=== PATIENT | female | born 1940 | race Caucasian/White ===

== ENCOUNTER 2016-09-20 08:31 | Inpatient (IN) ==
--- NOTE | 2016-09-19 21:23 | Discharge Summary ---
<Alis Buenrostro - Last Filed: 09/19/16 21:19> Date of Encounter: 09/19/16 - Discharge Diagnosis (1) Arthritis of knee, right Priority: Primary Status: Acute (2) HTN (hypertension) Priority: Secondary Status: Chronic Qualifiers: Hypertension type: essential hypertension Qualified Code(s): I10 - Essential (primary) hypertension (3) HLD (hyperlipidemia) Priority: Secondary Status: Chronic Qualifiers: Hyperlipidemia type: unspecified Qualified Code(s): E78.5 - Hyperlipidemia , unspecified (4) GERD (gastroesophageal reflux disease) Priority: Secondary Status: Chronic Qualifiers: Esophagitis presence: esophagitis presence not specified Qualified Code(s) : K21.9 - Gastro-esophageal reflux disease without esophagitis - Discharge Medications Prescriptions: Trazodone HCl 50 mg PO HS #5 tablet Home Medications: Albuterol Sulfate [Albuterol Inhaler] 2 puff IH Q4HR PRN 06/18/16 [History] Amitriptyline [Elavil] 100 mg PO HS 06/18/16 [History] Budesonide/Formoterol 160/4.5 [Symbicort 160/4.5] 2 puff IH BIDR PRN 06/18/16 [ History] Cholecalciferol (D-3) [Vitamin D] 3,000 unit PO DAILY 06/18/16 [History] Clopidogrel [Plavix] 75 mg PO DAILY 06/18/16 [History] Furosemide [Lasix] 20 mg PO DAILY 06/18/16 [History] Losartan Potassium [Cozaar] 50 mg PO DAILY 06/18/16 [History] Mirabegron [Myrbetriq] 50 mg PO DAILY 06/18/16 [History] Nitroglycerin [Nitrostat] 0.4 mg SL Q5M PRN 06/18/16 [History] Omeprazole [PriLOSEC] 40 mg PO DAILY 06/18/16 [History] Propranolol [Inderal] 20 mg PO BID 06/18/16 [History] Rosuvastatin [Crestor] 40 mg PO HS 06/18/16 [History] Aspirin Enteric Coated [Aspirin EC] 325 mg PO DAILY #21 tablet. 09/19/16 [Rx] HYDROcodone/Acet 5/325 mg [[place] 5-325 mg] 1 - 2 tab PO Q6H PRN #40 tab [Rx] Clopidogrel [Plavix] 75 mg PO DAILY 09/20/16 [History] Docusate [Colace] 100 mg PO BID PRN 09/20/16 [History] Folic Acid/Multivit-Min/Lutein [Centrum Silver Chewable Tablet] 1 each PO DAILY 09/20/16 [History] Psyllium Husk [Metamucil] 660 gm PO BID 09/20/16 [History] Trazodone HCl 50 mg PO HS #5 tablet 09/21/16 [Rx] Allergies/Adverse Reactions: Allergies Penicillins [PCN] Allergy (Verified 09/20/16 10:54) Hives alendronate sodium [From Fosamax] Adverse Reaction (Verified 09/20/16 10:54) Gastrointestinal Upset Hydromorphone [From Dilaudid] Adverse Reaction (Verified 09/20/16 10:54) Itching,nausea nitrofurantoin Adverse Reaction (Verified 09/20/16 10:54) Flushing Oxycodone [From Percocet] Adverse Reaction (Verified 09/20/16 10:54) Itching Primary care physician: Vinny Brady MD - Patient Status Disposition: Transfer Inpatient Rehab Fac Condition: Good - Discharge Instructions Follow Up With: Vinny Brady MD [Primary Care Provider] - - Hospital Course Hospital course: Ms. Mcgee is a 76 year old female - Time Spent with Patient Total time spent providing and/or coordinating discharge services: <Ronald Schmitt - Last Filed: 09/23/16 08:15> Date of Encounter: 09/23/16 Time of Encounter: 08:15 - Discharge Diagnosis (1) Arthritis of knee, right Priority: Primary Status: Acute (2) HTN (hypertension) Priority: Secondary Status: Chronic Qualifiers: Hypertension type: essential hypertension Qualified Code(s): I10 - Essential (primary) hypertension (3) HLD (hyperlipidemia) Priority: Secondary Status: Chronic Qualifiers: Hyperlipidemia type: unspecified Qualified Code(s): E78.5 - Hyperlipidemia , unspecified (4) GERD (gastroesophageal reflux disease) Priority: Secondary Status: Chronic Qualifiers: Esophagitis presence: esophagitis presence not specified Qualified Code(s) : K21.9 - Gastro-esophageal reflux disease without esophagitis (5) Acute blood loss anemia Priority: Primary Status: Acute Primary care physician: Vinny Brady MD - Patient Status Functional capacity at discharge: uses cane/walker Overall status at discharge: patient is progressing back to baseline - Hospital Course Hospital course: Ms. Mcgee is a 76 year old female The patient had an uneventful postoperative course. They received antibiotics and physical therapy and were discharged in stable condition. There will follow -up in the office in 2 weeks. Aspirin DVT prophylaxis - Time Spent with Patient Total time spent providing and/or coordinating discharge services:
[2016-09-20] MEDS ORDERED: Albuterol 2.5 MG/3 ML NEBULIZER ONE (08:51)
[2016-09-20] MEDS ORDERED: Ringers Solution, Lactated 1,000 ML IVC SCH ×2 (09:00→13:00)
[2016-09-20] MEDS ORDERED: Clindamycin 900 MG/50 ML 900 MG/50 ML IV.SOLN IVPB ONE (09:00)
[2016-09-20] MEDS ORDERED: Albuterol 2.5 MG/3 ML NEBULIZER IH ONE (09:00)
[2016-09-20] MEDS ORDERED: Lidocaine -MPF 1% 2 ML VIAL ID ONE (09:00)
[2016-09-20] MEDS ORDERED: Vancomycin 1,250 MG in D5% in Water 250 ML IVPB ONE (09:30)
--- NOTE | 2016-09-20 09:40 | Anesthesia Evaluation PreOp ---
Date of Encounter: 09/20/16 Time of Encounter: 09:38 - Past History Planned Operation: Right Total Knee Arthroplasty Cardiac History: HTN, Hyperlipidemia, Cardiac Stent (stents x 4) Pulmonary History: Former smoker (quit 30 years ago, smoked for 25 years), Asthma BUCKLE SORTER History: Denies Any Significant HX Other Medical History: GERD Anesthesia History: No Prior Anesthetic Complications, Past Anesthesia Alcohol Use: none Drug use: none Medications and Allergies Albuterol Sulfate [Albuterol Inhaler] 2 puff IH Q4HR PRN 06/18/16 [History] Amitriptyline [Elavil] 100 mg PO HS 06/18/16 [History] Budesonide/Formoterol 160/4.5 [Symbicort 160/4.5] 2 puff IH BIDR 06/18/16 [ History] Cholecalciferol (D-3) [Vitamin D] 5,000 unit PO DAILY 06/18/16 [History] Clopidogrel [Plavix] 75 mg PO DAILY 06/18/16 [History] Docusate [Colace] 100 mg PO BID #60 capsule 06/18/16 [Rx] Docusate [Colace] 100 mg PO DAILY PRN 06/18/16 [History] Furosemide [Lasix] 20 mg PO DAILY 06/18/16 [History] Losartan Potassium [Cozaar] 50 mg PO DAILY 06/18/16 [History] Mirabegron [Myrbetriq] 50 mg PO DAILY 06/18/16 [History] Nitroglycerin [Nitrostat] 0.4 mg SL Q5M PRN 06/18/16 [History] Omeprazole [PriLOSEC] 40 mg PO DAILY 06/18/16 [History] Propranolol [Inderal] 20 mg PO BID 06/18/16 [History] Rosuvastatin [Crestor] 40 mg PO HS 06/18/16 [History] Trazodone HCl 50 mg PO HS 06/18/16 [History] Ciprofloxacin [Cipro] 500 mg PO BID 7 Days 08/07/16 [Rx] Phenazopyridine HCl [Pyridium] 200 mg PO TID 2 Days 08/07/16 [Rx] Aspirin Enteric Coated [Aspirin EC] 325 mg PO DAILY #21 tablet. 09/19/16 [Rx] HYDROcodone/Acet 5/325 mg [[place] 5-325 mg] 1 - 2 tab PO Q6H PRN #40 tab [Rx] Allergies Penicillins [PCN] Allergy (Verified 06/18/16 07:41) Hives alendronate sodium [From Fosamax] Adverse Reaction (Verified 06/18/16 07:41) Gastrointestinal Upset Hydromorphone [From Dilaudid] Adverse Reaction (Verified 06/18/16 07:41) Itching,nausea nitrofurantoin Adverse Reaction (Verified 06/18/16 07:41) Flushing Oxycodone [From Percocet] Adverse Reaction (Verified 06/18/16 07:41) Itching - Meds/Allergy Pre-op Review Medications Reviewed: Yes Allergies Reviewed: Yes Beta Blockers on Current Med List: Yes If Beta Blockers taken, Date/Time (Last Dose taken): 09/20/2016 at 0645 Anesthesia Results - Labs Laboratory Tests 09/01/16 09/01/16 09/02/16 13:35 13:35 17:11 WBC 6.3 Hgb 14.3 Hct 44.4 Plt Count 269 PT 10.6 INR 1.0 APTT 29.7 Sodium 142 Potassium 3.8 BUN 14 Creatinine 1.03 - Imaging EKG: report reviewed (06/14/2016 SR, low QRS voltage in preocordial lads) Additional studies: 12/14/2012 Echo Impressions: LV * Normal left ventricular size and systolic function. * There is evidence of mild diastolic dysfunction of the left ventricle. RV * Normal right ventricular size and function. Valves * No significant valvular dysfunction. RVSP * There is no pulmonary hypertension. Anesthesia Exam O2 Sat Height 1.63 m Height 1.63 m Weight 83.007 kg Weight 83.007 kg O2 Sat by Pulse Oximetry 97 O2 Sat by Pulse Oximetry 97 Vital Signs Temp Pulse Resp BP Pulse Ox 98.0 F 70 16 149/78 97 09/20/16 09:09 09/20/16 09:09 09/20/16 09:09 09/20/16 09:09 09/20/16 09:09 Height: 5'4' Weight: 183 lbs NPO (# of Hours): 8 Pain Scale: 0 Pain Scale Used: Numeric (1 - 10) - HEENT Pupil (Motor): EOMI Mallampati: II Teeth: Edentulous Oral Opening: Greater than 3 - BUCKLE SORTER LOC: Oriented BUCKLE SORTER Motor: Normal RUE, Normal LUE, Normal RLE, Normal LLE, Normal Face BUCKLE SORTER Sensory: Normal: RUE, LUE, RLE, LLE, Face - Cardiac Rhythm: Regular Murmur: None - Pulmonary Breath Sounds: bilateral Clear Respiratory Effort: Symmetrical Anesthesia Assess/Plan ASA Score: 3 Modified Kelsey Scale for Level of Consciousness: Cooperative, oriented, and tranquil Anesthetic Plan: General, Regional Monitoring Plan: Standard Monitors Recovery Plan: PACU
--- NOTE | 2016-09-20 10:44 | History & Physical Report ---
Date of Encounter: 09/20/16 Time of Encounter: 10:44 24 Hour HP Update - Instructions Instructions: If the History and Physical is less than 30 days old and was completed prior to A.M. admission and or procedure and has NOT been updated on calendar day of procedure please complete this update prior to performing procedure. - Update Patient reports changes in Medical Condition: No Changes in examination, assessment, or condition: No Changes in Medication: No Preop tests/diagnostics Reviewed: Yes Surgery Remains Indicated: Yes Consent for Planned Operative Procedure(s) Verified: Yes - Pre-Operative Checklist Preoperative Checklist Indicated: No Prophylactic Antibiotic Ordered: Yes Is VTE Prophylaxis Indicated?: Yes
[2016-09-20] MEDS ORDERED: Ketorolac 30 MG/ML VIAL ONE (11:09)
[2016-09-20] MEDS ORDERED: Ondansetron 4 MG/2 ML VIAL ONE (11:09)
[2016-09-20] MEDS ORDERED: *HR* Propofol 200 MG/20 ML VIAL IVP ONE (11:09)
[2016-09-20] MEDS ORDERED: *HR* FentaNYL (PF) 100 MCG/2 ML VIAL ONE (11:09)
[2016-09-20] MEDS ORDERED: Lidocaine -MPF 2% 2 ML VIAL ONE (11:09)
[2016-09-20] MEDS ORDERED: *HR* Midazolam HCl 2 MG/2 ML VIAL ONE (11:09)
[2016-09-20] MEDS ORDERED: ROPIVACAINE HCL/PF 0.5% 30 ML VIAL ONE (12:07)
--- NOTE | 2016-09-20 12:38 | Anesthesia Procedures ---
Date of Encounter: 09/20/16 Time of Encounter: 12:25 Procedures: Anesthesia - Nerve Block Procedure Date: 09/20/16 Time: 12:25 Allergies/Adv Reactions: pcn. dilaudid, fosamax, macrobid, oxycodone Pre-op Diagnosis: right knee arthritis Surgical Procedure: right knee arthroplasty Checklist: Correct Patient Identifier, Correct procedure, History checked Correct side: Right Blood Thinner: No Monitor Applied: EKG, BP, Pulse Oximetry Supplemental Oxygen via Nasal Cannula (L/min): 2 Sedation: Versed (mg): 1 Sedation: Fentanyl (mcg): 50 Indication: Post Op Analgesia Pre-op Neuro Deficits: No Block Type: Femoral Catheter placed: No Sterile Technique: Yes Ultrasound used: Yes Anatomy identified: Yes Visual spread of Local: Yes Nerve Stimulator Range: >0.4 - 0.6 mA Blood on Needle Aspiration: No Smooth Injection of Local: Yes Pain with Injection of Local: No Prep: Chlorhexadine Needle: 22 x 50 mm Stimuplex Local: Ropivacaine (.5% 20ml) Vitals: vss
[2016-09-20] MEDS ORDERED: Naloxone 0.4 MG/ML INJ IVP PRN (12:47)
[2016-09-20] MEDS ORDERED: MOM Conc 10 ML UD.LIQ PO PRN (12:47)
[2016-09-20] MEDS ORDERED: Ondansetron 4 MG/2 ML VIAL IVP PRN ×2 (12:47→13:04)
[2016-09-20] MEDS ORDERED: Temazepam 15 MG CAPSULE PO PRN (12:47)
[2016-09-20] MEDS ORDERED: Sennosides 8.6 MG TABLET PO PRN (12:47)
[2016-09-20] MEDS ORDERED: *HR* Labetalol 100 MG/20 ML MDV IVP PRN (13:04)
[2016-09-20] MEDS ORDERED: Albuterol 2.5 MG/3 ML NEBULIZER IH PRN (13:04)
[2016-09-20] MEDS ORDERED: *HR* Morphine 10 MG/ML VIAL ONE (13:19)
--- NOTE | 2016-09-20 13:21 | Orthopedic Operative Note ---
Date of procedure: 09/20/16 Pre-op diagnosis: Right knee arthritis Post-op diagnosis: same Procedure: Procedure: Right Total knee replacement Estimated blood loss: 400 cc Hardware: Metal and polyethylene replacement. Arthrex Femur: 5 Tibia: 5 PS insert: 11 Patella: 34 Exam Under anesthesia: Loss of full extension 10 degrees Procedural Notes: Grade 3 patellofemoral and medial compartment Operative procedure: The patient was brought to the operating room and placed on the operating room table. After general anesthesia was administered the operative knee was examined. Findings were noted in the exam under anesthesia. The operative extremity was prepped and draped in sterile surgical fashion. The patient received IV antibiotics prior to skin incision. A standard midline incision was made centered over the patella. The incision was made through the skin and subcutaneous tissue. A medial parapatellar tendon approach was performed. Care was taken to preserve tissue along the medial aspect of the patella. And to protect the patella tendon. The deep MCL was released off the medial tibia. The infra patella fat pad was excised. Knee was brought into flexion. Patient noted to have grade 3 changes medial femoral condyle patellofemoral joint. The entry hole was made for the intramedullary femoral guide. The guide was seated in 6 degrees of valgus. Anterior cut was made followed by the distal cut. The ACL the PCL the medial and the lateral menisci were excised. The tibia was subluxed forward. The entry hole was made for the intramedullary tibial guide. Guide was seated to resect 2 mm off the more abnormal side. The knee was brought into flexion the distal femur was sized to a 5. The femoral guide was seated, the anterior cut was made followed by the posterior condylar cut, followed by the chamfer cuts. The finishing guide was seated the box cut was made and the lug holes were drilled. The tibia was sized to a 5, the tibial tray was seated and prepared with the large drill followed by the fin cutter. Trial reduction revealed full extension no varus valgus instability with the appropriate 11 PS Dipti. The patella was everted and cut was made at the level of the insertion of the quadriceps and patella tendon. The patella was sized 34 the guide was seated and the lug holes are drilled. Trial reduction revealed excellent patella tracking. All trial components were removed all bony surfaces were irrigated. The tibia was cemented first followed by the femur. The 11 PS Dipti was seated and the knee was brought into full extension. The patella was cemented and held in place with the patellar holding clamp. After the cement had hardened, the knee sat for 2 minutes with a Betadine saline solution. The knee was then irrigated out with 2 L of pulse irrigation. The extensor mechanism was closed with #2 FiberWire suture and #2 PDS suture. The subcutaneous tissue was then irrigated and closed deep with #1 PDS suture superficially with 0 PDS suture and skin was closed with skin zeb. The patient was then placed in a sterile dressing and a postoperative brace extubated and transferred to recovery room in stable condition. Anesthesia: MAGDY Surgeon: Ronald Schmitt Deputy County Attorney: Stephy Powell Condition: stable Disposition: PACU
[2016-09-20] MEDS ORDERED: *HR* Labetalol 20 MG/4 ML SYRINGE IVP ONE (13:49)
[2016-09-20] MEDS: *HR* Morphine 2 MG/ML SYRINGE IVP PRN ×3 (14:31→17:40)
[2016-09-20 14:38] LABS: Hematocrit 36.3 % (35.3-44.9); Hemoglobin 11.8 g/dL (11.5-15.4)
[2016-09-20] MEDS ORDERED: *HR* HYDROmorphone (PF) 1 MG/ML SYRINGE ONE (15:00)
[2016-09-20] MEDS ORDERED: *HR* HYDROmorphone (PF) 1 MG/ML SYRINGE IVP PRN (15:02)
--- NOTE | 2016-09-20 15:44 | Anesthesia Evaluation Post Op ---
Date of Encounter: 09/20/16 Time of Encounter: 15:25 - Vital Signs Vital Signs: Vital Signs/O2 Sat, Most Current Temp Pulse Resp BP Pulse Ox 98.2 F 74 18 103/72 93 09/20/16 15:41 09/20/16 15:41 09/20/16 15:41 09/20/16 15:41 09/20/16 15:41 - Lungs Lungs: Clear Ascult./Percussion - Airway Airway: Non-obstructed - Cardiovascular Regular Rate - Mental Status Mental Status: Alert & Oriented, Answers Appropriately - Pain Pain Scale: 6 Pain Scale used: Numeric (1 - 10) - Nausea Vomiting Nausea Vomiting: Not Present - Hydration Hydration: Ice chips, Has not voided - Discharge PostOp Status: Transfer Patient to floor
[2016-09-20] MEDS ORDERED: Clindamycin 900 MG/50 ML 900 MG/50 ML IV.SOLN IVPB SCH (16:00)
[2016-09-20] MEDS ORDERED: Budesonide/Formoterol 160/4.5 MDI IH PRN (16:27)
[2016-09-20] MEDS ORDERED: Nitroglycerin 0.4 MG TAB.SUBL SL PRN (16:27)
[2016-09-20] MEDS ORDERED: *HR* Enoxaparin 30 MG/0.3 ML SYRINGE SQ SCH (18:00)
[2016-09-20] MEDS: *HR* Enoxaparin 30 MG/0.3 ML SYRINGE SQ SCH (18:42)
[2016-09-20] MEDS: *HR* HYDROcodone/Acet 5/325 mg TABLET PO PRN (21:32)
[2016-09-20] MEDS: Psyllium 1 PACKET POWD.PACK PO SCH (21:35)
[2016-09-20] MEDS: traZODone 50 MG TABLET PO SCH (21:40)
[2016-09-21] MEDS ORDERED: Ringers Solution, Lactated 1,000 ML IVC SCH (03:45)
[2016-09-21] MEDS ORDERED: Clindamycin 900 MG/50 ML 900 MG/50 ML IV.SOLN IVPB SCH (04:00)
[2016-09-21] MEDS ORDERED: Ondansetron 4 MG/2 ML VIAL IVP PRN (04:41)
[2016-09-21] MEDS: *HR* Enoxaparin 30 MG/0.3 ML SYRINGE SQ SCH ×2 (05:55→17:27)
--- NOTE | 2016-09-21 06:38 | Orthopedics Progress Note ---
Date of Encounter: 09/21/16 Time of Encounter: 06:38 - Assessment and Plan (1) Arthritis of knee, right Current Visit: Yes Status: Acute (2) HTN (hypertension) Current Visit: Yes Status: Chronic Qualifiers: Hypertension type: essential hypertension Qualified Code(s): I10 - Essential (primary) hypertension (3) HLD (hyperlipidemia) Current Visit: Yes Status: Chronic Qualifiers: Hyperlipidemia type: unspecified Qualified Code(s): E78.5 - Hyperlipidemia , unspecified (4) GERD (gastroesophageal reflux disease) Current Visit: Yes Status: Chronic Qualifiers: Esophagitis presence: esophagitis presence not specified Qualified Code(s) : K21.9 - Gastro-esophageal reflux disease without esophagitis Subjective Interval history: Patient was seen this morning doing well without complaints. Afebrile vital signs stable. Operative extremity: Neurovascularly intact Dressing clean dry and intact Calves nontender Assessment and plan: Continue with postoperative care Hematocrit 36 Objective Vital signs: Vital Signs Temp Pulse Resp BP Pulse Ox 09/21/16 06:31 98.3 F 91 18 89/62 93 09/21/16 04:31 97.9 F 88 17 94/60 96 09/20/16 23:36 98.1 F 90 16 94/62 95 09/20/16 21:30 97.5 F L 90 16 103/64 94 09/20/16 17:35 83 16 110/68 94 09/20/16 16:35 83 16 99/72 95 09/20/16 16:05 98.0 F 80 16 109/67 95 09/20/16 16:00 95 09/20/16 15:41 98.2 F 74 18 103/72 93 09/20/16 15:25 97.9 F 73 16 130/82 92 09/20/16 15:15 74 16 161/79 96 09/20/16 15:05 97.9 F 73 16 148/63 98 09/20/16 14:55 73 16 167/65 97 09/20/16 14:45 71 16 149/71 95 09/20/16 14:35 98.9 F 70 16 136/66 95 09/20/16 14:25 69 16 120/66 92 09/20/16 14:15 69 16 109/55 94 09/20/16 14:05 98.3 F 68 15 146/77 95 09/20/16 12:04 77 17 184/91 100 09/20/16 09:18 16 149/78 97 09/20/16 09:09 98.0 F 70 16 149/78 97 Intake and Output 09/20/16 09/20/16 09/21/16 15:59 23:59 07:59 Intake Total 300 / 300 50 / 50 Output Total 400 / 400 75 / 75 Balance -100 / -100 -75 / -75 50 / 50 Intake: IV Fluids 300 / 300 50 / 50 Cleocin Premix 900 MG/50 50 / 50 50 / 50 ML 900 mg In 50 ml @ 50 mls/hr IVPB Q8HR [facility] Rx#: [id number] Vancocin 1,250 MG In 250 / 250 Dextrose 5% 250 ML @ 167 mls/hr IVPB ONCE ONE Rx#: [id number] Output: Urine 75 / 75 Estimated Blood Loss 400 / 400 Other: # Voids 1 Weight 83.007 kg 86.9 kg Patient Weight 09/21/16 23:59 Weight 86.9 kg - Labs CBC & BMP: 09/20/16 14:24 Consult Discharge Plan - Plan Referrals: Vinny Brady MD [Primary Care Provider] -
[2016-09-21 07:12] LABS: Hematocrit 27.5 % (35.3-44.9)
[2016-09-21 07:16] LABS: Hemoglobin 8.8 g/dL (11.5-15.4)
[2016-09-21] MEDS: Furosemide 20 MG TABLET PO SCH (07:48)
[2016-09-21] MEDS: Multivit/Ca/Min/Fe/FA 1 TAB TABLET PO SCH (07:55)
[2016-09-21] MEDS: Cholecalciferol (D-3) 1,000 UNIT TABLET PO SCH (07:56)
[2016-09-21] MEDS: Psyllium 1 PACKET POWD.PACK PO SCH ×2 (07:56→21:36)
[2016-09-21] MEDS: (Mirabegron [Myrbetriq] 50 MG) PO SCH (07:57)
[2016-09-21] MEDS ORDERED: Furosemide 20 MG/2 ML VIAL IVP PRN (08:07)
[2016-09-21] MEDS: 0.9 % Sodium Chloride 250 ML IVC SCH ×2 (11:13→14:54)
[2016-09-21] MEDS: *HR* HYDROcodone/Acet 5/325 mg TABLET PO PRN ×2 (11:33→17:28)
[2016-09-21] MEDS ORDERED: Clindamycin 900 MG/50 ML 900 MG/50 ML IV.SOLN IVPB ONE (12:00)
[2016-09-21] MEDS: *HR* Morphine 2 MG/ML SYRINGE IVP PRN ×2 (19:31→21:47)
[2016-09-21] MEDS: traZODone 50 MG TABLET PO SCH (21:36)
[2016-09-22] MEDS: *HR* HYDROcodone/Acet 5/325 mg TABLET PO PRN ×2 (00:33→17:10)
[2016-09-22] MEDS: *HR* Morphine 2 MG/ML SYRINGE IVP PRN ×4 (05:34→23:17)
[2016-09-22] MEDS: *HR* Enoxaparin 30 MG/0.3 ML SYRINGE SQ SCH ×2 (05:34→17:11)
[2016-09-22 06:25] LABS: Hematocrit 29.5 % (35.3-44.9); Hemoglobin 10.3 g/dL (11.5-15.4)
--- NOTE | 2016-09-22 06:57 | Orthopedics Progress Note ---
Date of Encounter: 09/22/16 Time of Encounter: 06:57 - Assessment and Plan (1) Arthritis of knee, right Current Visit: Yes Status: Acute (2) HTN (hypertension) Current Visit: Yes Status: Chronic Qualifiers: Hypertension type: essential hypertension Qualified Code(s): I10 - Essential (primary) hypertension (3) HLD (hyperlipidemia) Current Visit: Yes Status: Chronic Qualifiers: Hyperlipidemia type: unspecified Qualified Code(s): E78.5 - Hyperlipidemia , unspecified (4) GERD (gastroesophageal reflux disease) Current Visit: Yes Status: Chronic Qualifiers: Esophagitis presence: esophagitis presence not specified Qualified Code(s) : K21.9 - Gastro-esophageal reflux disease without esophagitis Subjective Interval history: Patient was seen this morning doing well without complaints. Afebrile vital signs stable. Operative extremity: Neurovascularly intact Dressing clean dry and intact Calves nontender Assessment and plan: Continue with postoperative care Hb 10.3 Objective Vital signs: Vital Signs Temp Pulse Resp BP Pulse Ox 09/22/16 05:00 98.9 F 94 16 124/63 96 09/21/16 23:38 98.6 F 109 18 109/68 93 09/21/16 20:21 98.5 F 120 17 137/59 95 09/21/16 17:25 98.6 F 101 14 119/58 09/21/16 15:08 97.6 F 104 16 100/56 98 09/21/16 14:55 97.9 F 98 15 114/54 94 09/21/16 14:54 97.9 F 98 15 114/54 96 09/21/16 13:35 98 F 96 16 108/56 09/21/16 11:22 97.6 F 96 16 103/66 09/21/16 11:08 97.5 F L 108 16 97/59 95 09/21/16 11:05 97.5 F L 108 16 97/59 95 Intake and Output 09/21/16 09/21/16 09/22/16 15:59 23:59 07:59 Intake Total 990 / 990 550 / 550 Balance 990 / 990 550 / 550 Intake: IV Fluids 50 / 50 30 / 30 0.9 % Sodium Chloride 250 50 / 50 30 / 30 ML @ 25 mls/hr IVC .Q10H PENDING SALE TO [facility] Rx#:[id number] Oral 640 / 640 240 / 240 Blood Product 300 / 300 280 / 280 Rbcs Leuko Poor As-1 300 / 300 Unit [id number] Rbcs Leuko Poor As-3 2nd 0 / 0 280 / 280 Unit [id number] Other: Meal Lunch Dinner Percent of Meal Consumed 10% 10% Stool Size Moderate # Voids 1 1 # Bowel Movements 1 Weight 87.1 kg Patient Weight 09/22/16 23:59 Weight 87.1 kg - Labs CBC & BMP: 09/22/16 05:56 Labs: Abnormal lab results Hgb 10.3 g/dL (11.5-15.4) L D 09/22/16 05:56 Hct 29.5 % (35.3-44.9) L 09/22/16 05:56 - VTE Documentation of Mechanical Device: Venous foot pump, device Consult Discharge Plan - Plan Referrals: Vinny Brady MD [Primary Care Provider] - Prescriptions: Trazodone HCl 50 mg PO HS #5 tablet
[2016-09-22] MEDS: Furosemide 20 MG TABLET PO SCH (08:14)
[2016-09-22] MEDS: Cholecalciferol (D-3) 1,000 UNIT TABLET PO SCH (08:14)
[2016-09-22] MEDS: Psyllium 1 PACKET POWD.PACK PO SCH ×2 (08:14→21:09)
[2016-09-22] MEDS: Multivit/Ca/Min/Fe/FA 1 TAB TABLET PO SCH (08:14)
[2016-09-22] MEDS: (Mirabegron [Myrbetriq] 50 MG) PO SCH (08:14)
[2016-09-22] MEDS: traZODone 50 MG TABLET PO SCH (21:08)
[2016-09-23] MEDS: *HR* HYDROcodone/Acet 5/325 mg TABLET PO PRN ×2 (05:23→11:29)
[2016-09-23] MEDS: *HR* Enoxaparin 30 MG/0.3 ML SYRINGE SQ SCH (05:23)
[2016-09-23 05:36] LABS: Hematocrit 26.5 % (35.3-44.9); Hemoglobin 8.9 g/dL (11.5-15.4)
--- NOTE | 2016-09-23 08:16 | Orthopedics Progress Note ---
Date of Encounter: 09/23/16 Time of Encounter: 08:16 - Assessment and Plan (1) Arthritis of knee, right Current Visit: Yes Status: Acute (2) HTN (hypertension) Current Visit: Yes Status: Chronic Qualifiers: Hypertension type: essential hypertension Qualified Code(s): I10 - Essential (primary) hypertension (3) HLD (hyperlipidemia) Current Visit: Yes Status: Chronic Qualifiers: Hyperlipidemia type: unspecified Qualified Code(s): E78.5 - Hyperlipidemia , unspecified (4) GERD (gastroesophageal reflux disease) Current Visit: Yes Status: Chronic Qualifiers: Esophagitis presence: esophagitis presence not specified Qualified Code(s) : K21.9 - Gastro-esophageal reflux disease without esophagitis (5) Acute blood loss anemia Current Visit: Yes Status: Acute Subjective Interval history: Patient was seen this morning doing well without complaints. Afebrile vital signs stable. Operative extremity: Neurovascularly intact Dressing clean dry and intact Calves nontender Assessment and plan: Continue with postoperative care hb 9.3 dc today Objective Vital signs: Vital Signs Temp Pulse Resp BP Pulse Ox 09/23/16 07:16 98 F 96 16 123/71 91 09/23/16 04:57 98.5 F 99 15 108/66 97 09/22/16 23:38 98.8 F 100 17 152/82 97 09/22/16 18:44 98.4 F 102 17 158/71 95 09/22/16 15:47 98.1 F 96 16 144/78 97 09/22/16 10:49 98.0 F 77 16 146/81 97 Intake and Output 09/22/16 09/23/16 09/23/16 23:59 07:59 15:59 Intake Total 525 / 525 200 / 200 Output Total 675 / 675 640 / 640 Balance -150 / -150 -440 / -440 Intake: Oral 525 / 525 200 / 200 Output: Urine 675 / 675 640 / 640 Other: Meal Dinner Percent of Meal Consumed 5% Weight 85.8 kg Patient Weight 09/23/16 23:59 Weight 85.8 kg - Labs CBC & BMP: 09/23/16 05:10 Labs: Abnormal lab results Hgb 8.9 g/dL (11.5-15.4) L 09/23/16 05:10 Hct 26.5 % (35.3-44.9) L 09/23/16 05:10 - VTE Documentation of Mechanical Device: Venous foot pump, device Consult Discharge Plan - Plan Referrals: Vinny Brady MD [Primary Care Provider] - Prescriptions: Trazodone HCl 50 mg PO HS #5 tablet
[2016-09-23] MEDS: Cholecalciferol (D-3) 1,000 UNIT TABLET PO SCH (09:36)
[2016-09-23] MEDS: *HR* Morphine 2 MG/ML SYRINGE IVP PRN (09:37)
[2016-09-23] MEDS: Psyllium 1 PACKET POWD.PACK PO SCH (09:37)
[2016-09-23] MEDS: Multivit/Ca/Min/Fe/FA 1 TAB TABLET PO SCH (09:37)
[2016-09-23] MEDS: Furosemide 20 MG TABLET PO SCH (09:37)
[2016-09-23] MEDS: (Mirabegron [Myrbetriq] 50 MG) PO SCH (09:37)
[2016-09-23 10:54] VITALS: BP 110/70
== END 2016-09-23 12:35 | DRG 470 ==
LOC: SAMDAY 08:31 → 3NENU 16:09
PROVIDERS: ADMIT Orthopaedic Surgery; ATTEND Orthopaedic Surgery

== ENCOUNTER 2020-02-07 10:51 | Observation (INO) ==
[2020-02-07] MEDS ORDERED: Dexamethasone 4 MG/ML VIAL IVP ONE (11:17)
[2020-02-07] MEDS ORDERED: Azithromycin 500 MG in 0.9 % Sodium Chloride 250 ML IVPB ONE (11:53)
[2020-02-07] MEDS ORDERED: cefTRIAXone 1,000 MG in Water for inj. (sterile) 10 ML IVP ONE (11:53)
[2020-02-07 12:07] LABS: Basophils # 0.1 K/mcL (0.0-0.2); Basophils % 0.6 %; Eosinophils # 0.1 K/mcL (0.0-0.6); Hematocrit 42.2 % (35.3-44.9); Hemoglobin 13.7 g/dL (11.5-15.4); Immature Granulocytes % 0.8 % (0-4); Lymphocytes # 0.9 K/mcL (0.6-4.6); Lymphocytes % 11.4 %; Mean Corpuscular HGB Conc 32.5 g/dL (31.6-35.5); Mean Corpuscular Hemoglobin 28.5 pg (28.0-33.3); Mean Corpuscular Volume 87.7 fL (83.0-100.0); Mean Platelet Volume 8.9 fL (9.4-12.4); Monocytes # 0.8 K/mcL (0.0-1.3); Platelet Count 258 K/mcL (140-400); Red Blood Count 4.81 M/mcL (3.82-4.97); Red Cell Distribution Width 13.4 % (11.5-14.5); Segmented Neutrophils % 76.2 %; White Blood Count 7.9 K/mcL (4.3-11.1)
[2020-02-07 12:29] LABS: INR 1.2; Prothrombin Time 13.5 Seconds (9.4-12.1)
[2020-02-07 12:31] LABS: Alanine Aminotransferase 18 Units/L (7-52); Albumin 3.9 g/dL (3.5-5.7); Albumin/Globulin Ratio 1.3 (1.1-2.2); Alkaline Phosphatase 74 Units/L (34-104); Aspartate Amino Transferase 30 Units/L (13-39); BUN/Creatinine Ratio 13 (6-26); Bilirubin,Direct 0.2 mg/dL (0.0-0.2); Bilirubin,Indirect 0.5 mg/dL (0.0-1.0); Bilirubin,Total 0.7 mg/dL (0.3-1.0); Blood Urea Nitrogen 11 mg/dL (8-23); C-Reactive Protein 67 mg/L (Less than 10); Calcium 8.7 mg/dL (8.6-10.3); Carbon Dioxide 28 mEq/L (23-29); Chloride 101 mEq/L (98-107); Glucose 111 mg/dL (70-105); Lactate Dehydrogenase 242 Units/L (140-271); Magnesium 1.8 mg/dL (1.6-2.6); Osmolality,Calculated 290 (280-300); Potassium 2.9 mEq/L (3.5-5.1); Sodium 140 mEq/L (136-145); Total Protein 6.9 g/dL (6.4-8.9); Troponin I < 0.03 ng/mL (< 0.04); eGFR For African Americans > 60 (> 60); eGFR For Non-African Americans > 60 (> 60)
[2020-02-07 12:48] LABS: Ferritin 138 ng/mL (10-120)
[2020-02-07] MEDS ORDERED: Naloxone 0.4 MG/ML INJ IVP PRN (13:55)
[2020-02-07] MEDS ORDERED: *HR* LORazepam 1 MG TABLET PO ONE (23:40)
[2020-02-08] MEDS: *HR* Enoxaparin 40 MG/0.4 ML SYRINGE SQ SCH (05:49)
[2020-02-08 08:04] LABS: Basophils % 0.5 %; Eosinophils % 0.1 %; Hematocrit 37.3 % (35.3-44.9); Lymphocytes % 13.3 %; Mean Corpuscular HGB Conc 31.9 g/dL (31.6-35.5); Mean Corpuscular Hemoglobin 28.1 pg (28.0-33.3); Mean Corpuscular Volume 88.2 fL (83.0-100.0); Mean Platelet Volume 9.1 fL (9.4-12.4); Monocytes % 14.1 %; Neutrophils # 5.2 K/mcL (1.6-8.9); Platelet Count 238 K/mcL (140-400); Red Blood Count 4.23 M/mcL (3.82-4.97); Red Cell Distribution Width 13.2 % (11.5-14.5); White Blood Count 7.4 K/mcL (4.3-11.1)
[2020-02-08 08:08] LABS: Hemoglobin 11.9 g/dL (11.5-15.4)
[2020-02-08 09:14] LABS: BUN/Creatinine Ratio 18 (6-26); Blood Urea Nitrogen 12 mg/dL (8-23); Calcium 8.3 mg/dL (8.6-10.3); Carbon Dioxide 26 mEq/L (23-29); Chloride 109 mEq/L (98-107); Glucose 112 mg/dL (70-105); Osmolality,Calculated 293 (280-300); Sodium 141 mEq/L (136-145); eGFR For African Americans > 60 (> 60); eGFR For Non-African Americans > 60 (> 60)
[2020-02-08] MEDS: Dexamethasone 4 MG/ML VIAL IVP SCH (09:32)
[2020-02-08] MEDS: *HR* HYDROcodone/Acet 7.5/325 mg TABLET PO PRN ×2 (11:32→18:06)
[2020-02-08] MEDS ORDERED: Budesonide/Formoterol 80/4.5 1 PUFF INH IH PRN (14:17)
[2020-02-08] MEDS: Furosemide 40 MG TABLET PO SCH (15:35)
[2020-02-08] MEDS: Budesonide/Formoterol 80/4.5 1 PUFF INH IH SCH (20:15)
[2020-02-09] MEDS: *HR* Enoxaparin 40 MG/0.4 ML SYRINGE SQ SCH (05:39)
[2020-02-09] MEDS: Budesonide/Formoterol 80/4.5 1 PUFF INH IH SCH (07:44)
[2020-02-09] MEDS: Furosemide 40 MG TABLET PO SCH (09:22)
[2020-02-09] MEDS: *HR* HYDROcodone/Acet 7.5/325 mg TABLET PO PRN (09:22)
[2020-02-09] MEDS: Dexamethasone 4 MG/ML VIAL IVP SCH (09:22)
[2020-02-09 12:48] VITALS: BP 139/78
== END 2020-02-09 16:15 | disposition home or self-care (01) ==
LOC: EMEROOARM 10:51 → 2NENU 10:51 → SUATTDRO 13:45 → 2NENU 14:27
PROVIDERS: ADMIT Internal Medicine; ATTEND Internal Medicine